=== PATIENT | female | born 1985 | race Caucasian/White ===

== ENCOUNTER 2019-02-05 04:27 | Emergency (ER) | payer BC, OTHER ==
[~2019-02-05] VITALS: Ht 172.7 cm; Wt 119.3 kg
[2019-02-05] MEDS ORDERED: ONDANSETRON HCL/PF 4 MG/2 ML VIAL ONE ×2 (04:41→06:01)
[2019-02-05] MEDS ORDERED: MORPHINE SULFATE INJ 4 MG/ML DISP.SYRIN ONE (04:55)
[2019-02-05 04:56] LABS: BASOPHILS # (AUTO) 0.1 /CMM (0.0-0.2); BASOPHILS % (AUTO) 0.5 % (0.0-2.0); EOSINOPHILS % (AUTO) 1.2 % (0.0-6.0); HEMATOCRIT 41 % (33-45); HEMOGLOBIN 13.7 g/dL (11.5-14.8); LYMPHOCYTES # (AUTO) 1.1 /CMM (0.8-4.8); LYMPHOCYTES % (AUTO) 4.8 % (20.0-44.0); MEAN CORPUSCULAR HGB CONC 33 g/dl (31.0-36.0); MEAN CORPUSCULAR VOLUME 90 fL (82-100); MONOCYTES # (AUTO) 1.5 /CMM (0.1-1.30); MONOCYTES % (AUTO) 6.4 % (2.0-12.0); NEUTROPHILS # (AUTO) 20.6 /CMM (1.8-8.9); NEUTROPHILS % (AUTO) 87.1 % (43.0-81.0); PLATELET COUNT (AUTO) 397 /CMM (150-450); RED BLOOD CELL COUNT(AUTO) 4.59 MIL/uL (4.0-5.2); WHITE BLOOD COUNT (AUTO) 23.6 K/uL (4.3-11.0)
--- NOTE | 2019-02-05 04:58 | NUR ---
BIBS. C/O RUQ RADIATING TO LEFT 01/14 SINCE 129. +N/V. HX OF GALLBLADDER REMOVAL. HX OF GASTRIC SLEEVE BACK IN MAY
[2019-02-05] MEDS ORDERED: ONDANSETRON HCL/PF 4 MG/2 ML VIAL IVP ONE (05:00)
[2019-02-05] MEDS ORDERED: IV NS 0.9% 1,000 ML BAG IV ONE (05:00)
[2019-02-05] MEDS ORDERED: MORPHINE SULFATE INJ 2 MG/ML DISP.SYRIN IV ONE (05:00)
[2019-02-05 05:14] LABS: CALCIUM, SERUM 9.1 mg/dL (8.5-10.1); CREATININE 0.9 mg/dL (0.6-1.3); POTASSIUM 3.9 mmol/L (3.5-5.1)
[2019-02-05 05:19] LABS: ALBUMIN 3.9 g/dL (3.4-5.0); BILIRUBIN,DIRECT 0.1 mg/dL (0.0-0.2); BILIRUBIN,TOTAL 0.4 mg/dL (0.2-1.0); TOTAL PROTEIN, SERUM 8.4 g/dL (6.4-8.2)
[2019-02-05] MEDS ORDERED: HYDROMORPHONE 1 MG/1 ML DISP.SYRIN IV ONE (05:30)
[2019-02-05] MEDS ORDERED: HYDROMORPHONE 1 MG/1 ML DISP.SYRIN ONE (05:32)
[2019-02-05] MEDS ORDERED: ONDANSETRON HCL/PF - ER 4 MG/2 ML VIAL IV ONE (06:30)
--- NOTE | 2019-02-05 07:13 | NUR ---
Patient discharged to home in stable condition. Written and verbal after care instructions given. Patient verbalizes understanding of instruction.
[2019-02-05 07:14] VITALS: BP 140/89
== END 2019-02-05 07:14 | disposition home or self-care (01) ==
LOC: ER 04:27
DX: K52.9 Noninfective gastroenteritis and colitis, unspecified (principal); E78.00 Pure hypercholesterolemia, unspecified; Z98.890 Other specified postprocedural states
CPT/HCPCS: 36415; 74176; 80048; 80076; 83690; 85025; 96361; 96374; 96375; 96376; 99284; J1170; J2270; J2405 ×2; J7030

== ENCOUNTER 2019-03-21 03:06 | Emergency (ER) | payer BC ==
[~2019-03-21] VITALS: Ht 175.3 cm; Wt 116.1 kg
--- NOTE | 2019-03-21 03:36 | NUR ---
RECEIVED PATIENT AMBULATORY ACCOMPANIED BY ROOMMATE. WITH COMPLAINT OF L HIP PAIN 10/10 RADIATING TO THE R HIP THAT STARTED 0130AM, AWAKEN TO PAIN. +N/V. ASSISTED TO BED.
--- NOTE | 2019-03-21 03:45 | NUR ---
INITIATED IV ACCESS LAC #18, GOOD BLOOD RETURN NOTED AFTER FIRST ATTEMPT. BLOOD DRAWN FOR LABS. SECURED LINED ACCORDINGLY.
[2019-03-21] MEDS ORDERED: ONDANSETRON HCL/PF 4 MG/2 ML VIAL ONE (03:46)
[2019-03-21] MEDS ORDERED: KETOROLAC TROMETHAMINE 15 MG/ML VIAL ONE (03:46)
--- NOTE | 2019-03-21 03:50 | NUR ---
ADMINISTERED DUE MEDS ORDERED. PATIENT ATTEMTED TO PEE BUT SAMPLE COLLECTED NOT ADEQUATE FOR LABS. TO RECOLLECT URINE SAMPLE. WILL MONITOR ACCORDINGLY.
[2019-03-21 03:51] LABS: BASOPHILS # (AUTO) 0.1 /CMM (0.0-0.2); BASOPHILS % (AUTO) 0.5 % (0.0-2.0); HEMATOCRIT 35 % (33-45); HEMOGLOBIN 11.5 g/dL (11.5-14.8); LYMPHOCYTES # (AUTO) 3.1 /CMM (0.8-4.8); MEAN CORPUSCULAR HGB CONC 33 g/dl (31.0-36.0); MEAN CORPUSCULAR VOLUME 92 fL (82-100); MONOCYTES # (AUTO) 0.9 /CMM (0.1-1.30); MONOCYTES % (AUTO) 7.6 % (2.0-12.0); NEUTROPHILS # (AUTO) 7.6 /CMM (1.8-8.9); NEUTROPHILS % (AUTO) 63.9 % (43.0-81.0); PLATELET COUNT (AUTO) 328 /CMM (150-450); RED BLOOD CELL COUNT(AUTO) 3.83 MIL/uL (4.0-5.2); WHITE BLOOD COUNT (AUTO) 11.9 K/uL (4.3-11.0)
[2019-03-21 03:54] LABS: CALCIUM, SERUM 9.2 mg/dL (8.5-10.1); CREATININE 0.9 mg/dL (0.6-1.3); POTASSIUM 3.5 mmol/L (3.5-5.1)
[2019-03-21 03:59] LABS: ALBUMIN 3.5 g/dL (3.4-5.0); BILIRUBIN,DIRECT 0.1 mg/dL (0.0-0.2); BILIRUBIN,TOTAL 0.3 mg/dL (0.2-1.0); TOTAL PROTEIN, SERUM 7.2 g/dL (6.4-8.2)
[2019-03-21] MEDS ORDERED: KETOROLAC TROMETHAMINE INJ 30 MG/ML VIAL IV ONE (04:00)
[2019-03-21] MEDS ORDERED: ONDANSETRON HCL/PF 4 MG/2 ML VIAL IVP ONE (04:00)
[2019-03-21] MEDS ORDERED: IOHEXOL-300 100 ML VIAL IV ONE (04:20)
--- NOTE | 2019-03-21 04:24 | NUR ---
PATIENT TRANSPORTED TO RADIOLOGY BY TECH VIA BED.
[2019-03-21] MEDS ORDERED: MORPHINE SULFATE INJ 4 MG/ML DISP.SYRIN ONE ×2 (04:33→05:03)
--- NOTE | 2019-03-21 04:35 | NUR ---
PATIENT BACK FROM RADIOLOGY.
[2019-03-21] MEDS ORDERED: MORPHINE SULFATE INJ 2 MG/ML DISP.SYRIN IV ONE ×2 (05:00)
[2019-03-21] MEDS ORDERED: IV NS 0.9% 1,000 ML IV PRN (05:00)
[2019-03-21] MEDS ORDERED: MORPHINE SULFATE INJ 2 MG/ML DISP.SYRIN ONE (05:01)
--- NOTE | 2019-03-21 05:05 | NUR ---
PATIENT STILL IN EXCROIATING PAIN. NON RADIATING AT THIS TIME BUT STILL IN L HIP. NOTIFIED MED. NEW ORDER NOTED AND CARRIED OUT. WILL CONTINUE TO MONITOR ACCORDINGLY.
--- NOTE | 2019-03-21 06:15 | NUR ---
DISCHARGE INSTRUCTIONS GIVEN TO PATIENT. INSTRUCTED PATIENT TO CHECK WITH PRIMARY PHYSICIAN FOR FOLLOW UP. INSTRUCTED TO GO TO ER OR CALL 911 FOR NEW OR WORSENING CONDITION. PATIENT VERBALIZED UNDERSTANDING. PATIENT SIGNED THE DISCHARGE PAPERS. AMBULATORY. LEAVED THE FACILITY AT THIS TIME WITH THE ROOMMATE.
[2019-03-21 06:28] VITALS: BP 154/84
== END 2019-03-21 06:20 | disposition home or self-care (01) ==
LOC: ER 03:08
DX: R10.12 Left upper quadrant pain (principal); R10.11 Right upper quadrant pain; R11.2 Nausea with vomiting, unspecified; K58.9 Irritable bowel syndrome, unspecified; E78.00 Pure hypercholesterolemia, unspecified; F10.10 Alcohol abuse, uncomplicated; Y90.9 Presence of alcohol in blood, level not specified; Z41.1 Encounter for cosmetic surgery; Z98.890 Other specified postprocedural states
CPT/HCPCS: 36415; 74177; 80048; 80076; 83690; 84702; 85025; 96361; 96374; 96375; 99284; J1885; J2270 ×3; J2405; J7030; Q9967

== ENCOUNTER 2020-01-27 07:35 | Emergency (ER) | payer BC ==
[~2020-01-27] VITALS: Ht 172.7 cm; Wt 117.0 kg
--- NOTE | 2020-01-27 07:45 | NUR ---
BED 7 PT BIB SLEF C/O SOB UPON LYING DOWN OR LYING FLAT. PT STATES THIS USUALLY HAPPENS AT NIGHT. VS CHECKED. AWAITING MD COLLINS.
[2020-01-27] MEDS ORDERED: METOCLOPRAMIDE HCL 10 MG/2 ML VIAL IV ONE (08:00)
[2020-01-27] MEDS ORDERED: METOCLOPRAMIDE HCL 10 MG/2 ML VIAL ONE (08:07)
[2020-01-27 08:20] LABS: BASOPHILS # (AUTO) 0.1 /CMM (0.0-0.2); BASOPHILS % (AUTO) 0.4 % (0.0-2.0); EOSINOPHILS % (AUTO) 0.1 % (0.0-6.0); HEMATOCRIT 38 % (33-45); HEMOGLOBIN 12.5 g/dL (11.5-14.8); LYMPHOCYTES # (AUTO) 1.7 /CMM (0.8-4.8); LYMPHOCYTES % (AUTO) 11.9 % (20.0-44.0); MEAN CORPUSCULAR HGB CONC 33 g/dl (31.0-36.0); MEAN CORPUSCULAR VOLUME 90 fL (82-100); MONOCYTES # (AUTO) 0.5 /CMM (0.1-1.30); MONOCYTES % (AUTO) 3.2 % (2.0-12.0); NEUTROPHILS # (AUTO) 11.8 /CMM (1.8-8.9); NEUTROPHILS % (AUTO) 84.4 % (43.0-81.0); PLATELET COUNT (AUTO) 443 /CMM (150-450); RED BLOOD CELL COUNT(AUTO) 4.19 MIL/uL (4.0-5.2)
[2020-01-27 08:28] LABS: CALCIUM, SERUM 10.3 mg/dL (8.5-10.1); CARBON DIOXIDE 21 mmol/L (21-32); CHLORIDE 101 mmol/L (98-107); CREATININE 0.9 mg/dL (0.6-1.3); GLUCOSE 128 mg/dL (74-106); SODIUM SERUM 137 mmol/L (136-145); UREA NITROGEN, BLOOD 6 mg/dL (7-18)
[2020-01-27 08:34] LABS: ALANINE AMINOTRANSFERASE 32 U/L (12-78); ALBUMIN 3.7 g/dL (3.4-5.0); ALKALINE PHOSPHATASE 56 U/L (46-116); ASPARTATE AMINOTRANSFERASE 17 U/L (15-37); BILIRUBIN,DIRECT 0.1 mg/dL (0.0-0.2); BILIRUBIN,TOTAL 0.4 mg/dL (0.2-1.0); LIPASE 66 U/L (73-393)
[2020-01-27 09:08] VITALS: BP 133/77
== END 2020-01-27 09:11 | disposition home or self-care (01) ==
LOC: ER 07:38
DX: R07.89 Other chest pain (principal); K21.9 Gastro-esophageal reflux disease without esophagitis; K58.9 Irritable bowel syndrome, unspecified; R19.7 Diarrhea, unspecified; R11.10 Vomiting, unspecified; E78.00 Pure hypercholesterolemia, unspecified; E66.01 Morbid (severe) obesity due to excess calories; Z68.39 Body mass index [BMI] 39.0-39.9, adult; Z90.49 Acquired absence of other specified parts of digestive tract; Z41.1 Encounter for cosmetic surgery; Z98.890 Other specified postprocedural states
CPT/HCPCS: 36415; 71045; 80048; 80076; 83690; 84484; 85025; 93005; 96374; 99285; J2765; J7030